=== PATIENT | female | born 1945 | race Caucasian/White ===

== ENCOUNTER 2018-03-13 17:33 | Emergency (ER) | payer MEDICARE ==
[2018-03-13 18:04] VITALS: BP 131/87
--- NOTE | 2018-03-13 18:12 | UC ---
Shoulder Pain HPI - HPI Summary HPI Summary: right shoulder pain after fall this morning appears uncomfortable to family, had tylenol at 1500 - History of Current Complaint Hx Obtained From: Patient, Family/Custodial Engineer Hx From Patient Unobtainable Due To: Dementia ?: No Onset/Duration: Sudden Onset, Still Present Timing: Constant Pain Intensity: 9 Pain Scale Used: 0-10 Numeric - perfamily Character: Unable to Describe Aggravating Factor(s): Movement Alleviating Factor(s): Rest, OTC Meds Associated Signs And Symptoms: Positive: Swelling - right shoulder, Bruising - right shoulder <Laura Pascual - Last Filed: 03/13/18 19:04> <Maria D Castanon - Last Filed: 03/14/18 09:28> - History of Current Complaint Chief Complaint: UCUpperExtremity Stated Complaint: RIGHT SHOULDER INJURY Time Seen by Provider: 03/13/18 17:57 - Allergies/Home Medications Allergies/Adverse Reactions: Allergies Allergy/AdvReac Type Severity Reaction Status Date / Time codeine Allergy Unknown Unknown Verified 03/13/18 17:51 Reaction Details Home Medications: Home Medications Acetaminophen TAB* [Tylenol TAB*] 480 mg PO Q4H PRN 03/13/18 [History Confirmed 03/13/18] Cranberry [Cranberry] 400 mg PO DAILY 03/13/18 [History Confirmed 03/13/18] Melatonin [Melatonin Maximum Strengt] 30 mg PO DAILY 03/13/18 [History Confirmed 03/13/18] Multivitamin [Multivitamins] 1 cap PO DAILY 03/13/18 [History Confirmed 03/13/18 ] PMH/Surg Hx/FS Hx/Imm Hx Previously Healthy: No Neurological History: Dementia - Surgical History Surgical History: Yes Surgery Procedure, Year, and Place: HYSTERECTOMY. TONSILLECTOMY - Family History Known Family History: Positive: None Negative: Cardiac Disease, Hypertension, Diabetes - Social History Occupation: Retired Lives: With Family Alcohol Use: None Substance Use Type: None Smoking Status (MU): Former Smoker Type: Cigarettes Have You Smoked in the Last Year: No When Did the Patient Quit Smoking/Using Tobacco: 40 YRS AGO <Laura Pascual - Last Filed: 03/13/18 19:04> Review of Systems Constitutional: Negative Skin: Negative Eyes: Negative ENT: Negative Respiratory: Negative Cardiovascular: Negative Gastrointestinal: Negative Genitourinary: Negative Motor: Negative Neurovascular: Negative Musculoskeletal: Negative, Arthralgia - right shoulder Neurological: Negative Psychological: Negative Is Patient Immunocompromised?: No All Other Systems Reviewed And Are Negative: Yes <Laura Pascual - Last Filed: 03/13/18 19:04> Physical Exam Triage Information Reviewed: Yes Completion Of Physical Exam Limited Due To: Dementia Appearance: Ill-Appearing, Pain Distress Vital Signs: Initial Vital Signs Temp 99.1 F 03/13/18 17:56 Pulse 89 03/13/18 17:56 Resp 16 03/13/18 17:56 BP 131/87 03/13/18 17:56 Pulse Ox 98 03/13/18 17:56 Vital Signs Reviewed: Yes Eye Exam: Normal Eyes: Positive: Conjunctiva Clear ENT Exam: Normal ENT: Positive: Normal ENT inspection, Hearing grossly normal Dental Exam: Normal Neck exam: Normal Neck: Positive: Supple, Nontender Respiratory Exam: Normal Respiratory: Positive: Chest non-tender, Lungs clear, Normal breath sounds, No respiratory distress Cardiovascular Exam: Normal Cardiovascular: Positive: RRR, No Murmur, Pulses Normal, Brisk Capillary Refill Musculoskeletal Exam: Other Musculoskeletal: Positive: Other: - patient is unable to cooperate with examination appers uncomfortable when proximal humerous and shoulder are palpated Neurological Exam: Normal Neurological: Positive: Alert, Muscle Tone Normal Psychological Exam: Normal Skin Exam: Normal <Laura Pascual - Last Filed: 03/13/18 19:04> Vital Signs: Initial Vital Signs Temp 99.1 F 03/13/18 17:56 Pulse 89 03/13/18 17:56 Resp 16 03/13/18 17:56 BP 131/87 03/13/18 17:56 Pulse Ox 98 03/13/18 17:56 <Maria D Castanon - Last Filed: 03/14/18 09:28> Diagnostics - Laboratory Diagnostic Studies Completed/Ordered: ua-+nitrates, leukoesterace, protien - Radiology No standard instances Xray Interpretation: Positive (See Comments) - slightly impacted humeral neck fx Radiology Interpretation Completed By: ED Physician, Radiologist <Laura Pascual - Last Filed: 03/13/18 19:04> Shoulder Course/Dx - Course Assessment/Plan: sling, ice, ibuprofen, tylenol, (family wishes not to use opiates) macrobid for UTI, will follow with home care MD in the morning, culture urine - Differential Dx/Diagnosis Provider Diagnoses: Impacted right humeral surgical neck fracture, uti <Laura Pascual - Last Filed: 03/13/18 19:04> Discharge - Sign-Out/Discharge Documenting (check all that apply): Discharge/Admit/Transfer - Billing Disposition and Condition Condition: STABLE Disposition: HOME <Laura Pascual - Last Filed: 03/13/18 19:04> - Billing Disposition and Condition Condition: STABLE Disposition: HOME <Maria D Castanon - Last Filed: 03/14/18 09:28> - Discharge Plan Condition: Stable Disposition: HOME Prescriptions: Nitrofurantoin Monohyd/M-Cryst [Macrobid 100 mg Capsule] 100 mg PO BID #10 cap Patient Education Materials: Arm Fracture in Adults (ED), Urinary Tract Infection in Older Adults (ED) Referrals: Non Staff,Doctor [Primary Care Provider] - Additional Instructions: Follow with your home care doctor at tomorrows home visit Attestation Statement User Type: Provider - I was available for consult. This patient was seen by the [facility]. The patient was not presented to, seen by, or examined by me. -Phillip <Maria D Castanon - Last Filed: 03/14/18 09:28>
--- NOTE | 2018-03-13 18:47 | RAD ---
Indication: RIGHT shoulder bruising and pain on palpation and range of motion. Dementia. Comparison: No relevant prior exams available on the [facility] PACS for comparison. Technique: Internal and external rotation AP and scapular Y views RIGHT shoulder Report: Mildly impacted surgical neck fracture of the humerus. Overlying soft tissue swelling. Negative for additional fracture. Bone density appears decreased throughout. Normal acromioclavicular and glenohumeral joint alignment. IMPRESSION: Mildly impacted surgical neck fracture of the humerus.
== END 2018-03-13 19:16 | disposition home or self-care (01) ==
LOC: UCCORT 17:33
DX: S42.211A Unspecified displaced fracture of surgical neck of right humerus, initial encounter for closed fracture (principal); W19.XXXA Unspecified fall, initial encounter; Y93.9 Activity, unspecified; Y92.9 Unspecified place or not applicable; N39.0 Urinary tract infection, site not specified; Z88.5 Allergy status to narcotic agent; Z87.891 Personal history of nicotine dependence
CPT/HCPCS: 81003; 87077; 87086; 87186; 99213; G0463